=== PATIENT | female | born 1950 | race Hispanic/Latino ===

== ENCOUNTER 2022-04-03 10:16 | Emergency (ER) | payer OTHER ==
[~2022-04-03] VITALS: Ht 172.7 cm; Wt 117.9 kg
[2022-04-03 10:21] VITALS: BP 147/87
[2022-04-03] MEDS ORDERED: NAPR-1023 PO (11:05)
== END 2022-04-03 11:27 | disposition home or self-care (01) ==
LOC: EDH 10:16
DX: S86.912A Strain of unspecified muscle(s) and tendon(s) at lower leg level, left leg, initial encounter (principal); I10 Essential (primary) hypertension; Z90.89 Acquired absence of other organs; Z98.890 Other specified postprocedural states; Z90.49 Acquired absence of other specified parts of digestive tract; Z88.6 Allergy status to analgesic agent; W01.0XXA Fall on same level from slipping, tripping and stumbling without subsequent striking against object, initial encounter; Y93.89 Activity, other specified; Y92.89 Other specified places as the place of occurrence of the external cause; Y99.8 Other external cause status
CPT/HCPCS: 29505; 73560

== ENCOUNTER 2022-04-07 19:53 | Emergency (ER) | payer MEDICARE ==
[~2022-04-07] VITALS: Ht 172.7 cm; Wt 117.9 kg
[~2022-04-07 19:53] MED LIST: NAPR-1023 PO
[2022-04-07 20:25] LABS: BASOPHILS % (AUTO) 0.3 % (0.0-5.0); HEMATOCRIT 41.1 % (36-48); MEAN CORPUSCULAR HEMOGLOBIN 30.6 pg (27.0-33.0); MEAN CORPUSCULAR HGB CONC 34.1 g/dL (32.0-36.0); MEAN CORPUSCULAR VOLUME 89.7 fL (79-99); MONOCYTES % (AUTO) 11.7 % (3.0-13.0); NEUTROPHILS % (AUTO) 77.7 % (40.0-77.0); PLATELET COUNT (AUTO) 217 K/uL (130-400); RED BLOOD CELL COUNT(AUTO) 4.58 MIL/uL (4.00-5.50); RED CELL DISTRIBUTION WIDTH 12.8 % (11.0-15.5); WHITE BLOOD COUNT (AUTO) 7.1 K/uL (4.8-10.8)
[2022-04-07] MEDS ORDERED: ALBUTEROL INHALER 90MCG/INH IH ONE (20:30)
[2022-04-07] MEDS ORDERED: GUAIFENESIN-CODEINE 5 ML SYRUP PO ONE (20:30)
[2022-04-07] MEDS ORDERED: CEFTRIAXONE 1G VIAL IVP ONE (20:30)
[2022-04-07] MEDS ORDERED: AZITHROMYCIN 250 MG TABLET PO ONE (20:30)
[2022-04-07] MEDS ORDERED: DEXAMETHASONE 4 MG TAB PO SCH (20:30)
[2022-04-07] MEDS ORDERED: NIFEDIPINE 10 MG CAP PO ONE (20:30)
[2022-04-07] MEDS ORDERED: ACETAMINOPHEN 500 MG TABLET PO ONE (20:30)
[2022-04-07] MEDS ORDERED: ONDANSETRON 4MG INJ IVP ONE (20:30)
[2022-04-07 20:32] LABS: CREATININE 1.2 mg/dL (0.5-1.5); POTASSIUM 3.9 mmol/L (3.5-5.1)
[2022-04-07 20:37] LABS: ALBUMIN 3.4 g/dL (3.5-5.0); BILIRUBIN,TOTAL 2.2 mg/dL (0.2-1.0); TOTAL PROTEIN, SERUM 7.5 g/dL (6.0-8.3)
[2022-04-07] MEDS ORDERED: AMOX1TAB16 PO (21:53)
[2022-04-07] MEDS ORDERED: PRED20TA3 PO (21:53)
[2022-04-07] MEDS ORDERED: ALBU8.5H8 IH (21:53)
[2022-04-07] MEDS ORDERED: D-ME1POW16 PO (21:53)
[2022-04-07] MEDS ORDERED: ONDA4TAB10 PO (21:54)
[2022-04-07 22:00] VITALS: BP 136/79
== END 2022-04-07 22:23 | disposition home or self-care (01) ==
LOC: EDH 19:53
DX: U07.1 COVID-19 (principal); J40 Bronchitis, not specified as acute or chronic; I10 Essential (primary) hypertension; E66.9 Obesity, unspecified; Z68.39 Body mass index [BMI] 39.0-39.9, adult; Z86.73 Personal history of transient ischemic attack (TIA), and cerebral infarction without residual deficits; Z79.899 Other long term (current) drug therapy; Z88.6 Allergy status to analgesic agent
CPT/HCPCS: 36415; 71045; 80053; 83605; 83880; 84484; 85025; 87040 ×2; 87635; 87804 ×2; 87880; 93005; 96374; 96375; 99285; C9803; J0696; J2405; J8540

== ENCOUNTER → 2022-08-29 | Outpatient (CLI) | payer OTHER, MEDICARE ==
[~2022-08-29] MED LIST changes: +ALBU8.5H8 IH; +AMOX1TAB16 PO; +D-ME1POW16 PO; +ONDA4TAB10 PO; +PRED20TA3 PO
== END | disposition home or self-care (01) ==
LOC: RAH 09:22
PROVIDERS: ATTEND Student in an Organized Health Care Education/Training Program
DX: K43.9 Ventral hernia without obstruction or gangrene (principal); Z90.49 Acquired absence of other specified parts of digestive tract
CPT/HCPCS: 74176